=== PATIENT | female | born 1995 | race Caucasian/White ===

== ENCOUNTER 2020-04-06 10:33 | Outpatient (CLI) | payer OTHER, SELFPAY ==
--- NOTE | ~2020-04-06 | US_ITS ---
US OB <= 14 weeks fetus DATE: 04/06/2020 11:25 INDICATION: Threatened miscarriage TECHNIQUE: Real-time imaging and Doppler analysis COMPARISON: None FINDINGS: The uterus measures 9.8 cm height, 7.2 cm transverse and 4.9 cm anteroposterior dimension. An intrauterine gestational sac is identified, normally shaped, with normal surrounding hyperechogeni city consistent with decidual reaction. Yolk sac and pole are detected. There is heart mo tion. The crown-rump length is 1.71 cm is consistent with estimated gestational age of 8 weeks 1 day +/- 5 days. MARVA is 11/15/2020. There is a 16 x 3.6 x 13 mm hypoechoic subchorionic area consistent with subchorionic hemorrhage. The right ovary measures 3.7 x 1.8 x 1.8 cm. Left ovary measures 3.3 x 2 x 3.2 cm. No pelvic mass lesion or abnormal pelvic fluid collection is detected. IMPRESSION: Subchorionic hemorrhage Reviewed, dictated and finalized at [facility]. Reviewed, dictated and finalized at [facility]. IMPRESSION: Subchorionic hemorrhage
== END 2020-04-06 10:34 | disposition home or self-care (01) ==
LOC: ANHIMG 10:38
PROVIDERS: Visit Provider Obstetrics & Gynecology
DX: O20.0 Threatened abortion (principal); O43.891 Other placental disorders, first trimester; Z3A.00 Weeks of gestation of pregnancy not specified
CPT/HCPCS: 76801

== ENCOUNTER 2020-06-09 01:14 | Observation (INO) | payer OTHER, SELFPAY ==
[2020-06-09 01:19] VITALS: BP 118/90; PULSE 103; RESP 18; TEMP 36.7; O2SAT 100
--- NOTE | 2020-06-09 02:31 | ED.GENADULT ---
HPI - General Adult General Chief complaint: Unspecified Stated complaint: abd pain, yellow thick discharge Time Seen by Provider: 06/09/20 01:18 History of Present Illness HPI narrative: female currently 17 weeks with h/o previous second trimester miscarriage presents to the ED for vaginal discharge. She reports that for the past 2 days she has had a moderate amount of thick yellow discharge. This is associated with lower abdominal cramping and frequent urination. She has had some nausea with this , none currently. She is followed by Dr. Remy. No fever, flank pain, vaginal bleeding. Related Data Home Medications Medication Instructions Recorded Confirmed metoclopramide HCl 10 mg PO Q6H PRN 06/09/20 06/09/20 pyridoxine (vitamin B6) 25 mg PO QID 06/09/20 06/09/20 Allergies Allergy/AdvReac Type Severity Reaction Status Date / Time human papillomavirus Allergy Unknown Swelling Verified 06/30/19 05:44 vaccine, quadr Review of Systems Review of Systems: All systems reviewed & are unremarkable except as noted in HPI and below Constitutional: Constitutional: Denies fever(s) Cardiovascular: Cardiovascular: Denies chest pain Respiratory: Respiratory: Denies dyspnea Gastrointestinal: Gastrointestinal: Reports abdominal pain, Denies diarrhea, Denies nausea and Denies vomiting Genitourinary: Genitourinary: Denies abnormal vaginal bleeding, Denies hematuria, Denies dysuria and Reports vaginal discharge Musculoskeletal: Musculoskeletal: Denies back pain [facility] Family History Family History Other Unknown family medical history Social History Social History Smoking packs per day: 0.5 Smoking cigarettes per day: 10.0 Smoking status: Current every day smoker Tobacco type: cigarettes Additional smoking assessment comments: while preg. tries to smoke 5 cigarettes in a day. Also smokes pot Alcohol intake: never Substance use: current Substance use type: marijuana Gender identity (if verbalized by the patient): Female Spiritual care concerns: No Exam Const: General: healthy appearing, no acute distress and alert Orientation/consciousness: patient oriented x3 HENMT: Head: normal to inspection Neck: Neck: normal visual inspection and no lymphadenopathy Chest: Chest palpation & inspection: no tenderness Resp: Effort & Inspection: normal respiratory effort Auscultation: clear to auscultation bilaterally, no rales, no rhonchi and no wheezes Cardio: Jugular venous distension: no JVD Rate: regular rate Rhythm: regular rhythm Heart sounds: no murmurs GI: Inspection: non-distended GI Palp: Yes Soft to palpation and No Tenderness to palpation present (GI) : Other: immediately upon inserting the speculum into the vagina a bulging amniotic sac with parts was visible. Skin: General skin exam: normal color Neuro: General: patient oriented x3, moves all extremities and CN's II-XI intact bilaterally Speech: normal speech Extrem: General: no edema Psych: Appearance: well kempt Affect: normal affect Course Course Emergency Course: Upon performing the pelvic exam I informed the patient of what I had seen and left the room to page Dr. Remy. She then got up from the stretcher to use the telephone and she began to experience some bleeding. I discussed the case with Dr. Remy and he said that he would admit her observation. Vital Signs Vital signs: Vital Signs Temperature 36.7 C 06/09/20 01:19 Pulse Rate 103 H 06/09/20 01:19 Respiratory Rate 18 06/09/20 01:19 Blood Pressure 118/90 06/09/20 01:19 Pulse Oximetry 100 06/09/20 01:19 Temperature 36.7 C 06/09/20 09:05 Pulse Rate 70 06/09/20 09:05 Respiratory Rate 06/09/20 09:05 Blood Pressure 96/55 L 06/09/20 09:05 Pulse Oximetry 100 06/09/20 09:05 Medical Decision Ma
[2020-06-09 02:36] VITALS: BP 134/9; PULSE 79; RESP 18; O2SAT 100
[2020-06-09 02:39] LABS: Basophils Percent Auto 0.2 % (0.2-1.2); Eosinophils Absolute Auto 0.1 K/mm3 (0-0.3); Eosinophils Percent Auto 0.7 % (0-4.4); Hematocrit 33.3 % (37.0-47.0); Hemoglobin 11.6 g/dL (12.0-15.0); Immature Granulocyte Absolute 0.04 K/mm3 (0.00-0.031); Immature Granulocyte Percent A 0.3 % (0-0.5); Lymphocytes Absolute Auto 2.61 K/mm3 (0.9-3.2); Lymphocytes Percent Auto 19.4 % (18.3-44.2); Mean Corpuscular HGB Conc 34.8 g/dl (32-36); Mean Corpuscular Hemoglobin 32.4 pg (26-34); Mean Platelet Volume 10.3 fl (7.4-10.4); Monocytes Absolute Auto 0.9 K/mm3 (0.1-0.6); Neutrophils Absolute Auto 9.7 K/mm3 (1.3-6.7); Neutrophils Percent Auto 72.4 % (45.5-73.1); Platelet Count Result 200 k/mm3 (150-375); Red Blood Count 3.58 M/mm3 (4.2-5.4); Red Cell Distribution Width 13.6 % (11.5-14.5); White Blood Count 13.5 K/mm3 (4.5-10.0)
[2020-06-09 02:42] LABS: Add Urine Microscopic? YES; Appearance Urine Clear (Clear); Bacteria Urine Trace /hpf; Bilirubin Urine Negative (Negative); Blood Urine Negative (Negative); Color Urine Yellow (Yellow); Glucose Urine UA Negative (Negative); Ketones Urine Negative (Negative); Leukocyte Esterase Ur Trace LEU/UL (Negative); Mucus Urine Rare /lpf; Nitrate Urine Negative (Negative); Protein Urine Negative (Negative); RBC Urine 0-2 /hpf (0-2); Squamous Epithelial Cell Urine Few /hpf (Few); Urobilinogen Urine Negative mg/dL (<2.0); WBC Urine 0-3 /hpf
[2020-06-09 02:55] LABS: Alanine Aminotransferase 42 U/L (4-35); Albumin Level 4.4 g/dL (3.5-5.1); Alkaline Phosphatase 63 U/L (38-126); Aspartate Amino Transferase 25 U/L (14-36); Bilirubin,Total 0.3 mg/dL (0.2-1.3); Blood Urea Nitrogen 8 mg/dL (7-17); Calcium 9.5 mg/dL (8.4-10.2); Carbon Dioxide 23 mmol/L (22-30); Chloride 106 mmol/L (98-107); Estimated Glomerular Filt Rate > 60; Glucose 99 mg/dL (65-105); Potassium 3.9 mmol/L (3.4-5.0); Sodium 137 mmol/L (137-145)
--- NOTE | 2020-06-09 03:25 | PC.NURSE ---
After pelvic exam, pt walked out to phone and noticed blood dripping on the floor from her vagina. Pt walked back to room where she was given a warm towel to clean herself and some underwear and pads for any constant drainage.
[2020-06-09 03:51] VITALS: BP 139/77; PULSE 78; RESP 14; O2SAT 100
[2020-06-09] MEDS: LORazepam 1 MG TABLET PO (03:59)
--- NOTE | 2020-06-09 04:28 | ADMGEN ---
This patient, Asya Hunter, was admitted to 2 Medical Room 248-01 @0424 Patient/family oriented to hospital policies and general routines including ID bracelet, bed and alarms, visiting hours, pain management, procedures, bathroom and other care routines, personal items, smoking policy, room service/diet, and visiting hours. Valuables list has been completed. Information on how to activate the Rapid Response Team has been discussed. Patient/Family are encouraged to report perceived risks to care and to ask questions if they do not understand what they are told or what they should do.
[2020-06-09] MEDS: LACTATED RINGERS 1,000 ML 100 ML IV CONT (04:45)
[2020-06-09 06:00] VITALS: BP 126/46; PULSE 63; RESP 18; TEMP 37.2; O2SAT 99; BMI 33.6
--- NOTE | 2020-06-09 06:55 | PC.NURSE ---
Called to floor to assist with delivery. Patient having an urge to push. Sve performed Complete.
--- NOTE | 2020-06-09 06:58 | PC.NURSE ---
Sylvia Lane RN at bedside. Checking cervix and staying at pt's bedside.
--- NOTE | 2020-06-09 07:15 | PC.NURSE ---
Dr Remy here for delivery.
--- NOTE | 2020-06-09 07:23 | PC.NURSE ---
AROM, Bloody fluid noted. Dr Remy remains at bedside. Patient is complete and pushing.
[2020-06-09] MEDS: OXYTOCIN 30 UNITS/NS 500 ML 30 UNITS/500 ML BAG 999 UNITS IV CONT (07:25)
--- NOTE | 2020-06-09 07:25 | PC.NURSE ---
Delivery of a non viable male infant. Heart rate and movement noted. To mothers chest for her to hold. Discussed viability with patient and family. Explained the limits of viable age for resuscitation. Comfort care given.
[2020-06-09] MEDS: miSOPROStol 200 MCG TABLET 600 MCG VAGINAL (07:58)
--- NOTE | 2020-06-09 08:00 | PC.NURSE ---
OB nurse Sylvia in room with patient, along with Dr. Remy. Patient has delivered her baby and is holding baby. Mother at bedside for support along with physician and nurse.
--- NOTE | 2020-06-09 08:08 | PC.NURSE ---
At 0700 Dr. Bush and Sylvia RN ob nurse is at bedside.
--- NOTE | 2020-06-09 08:27 | PC.NURSE ---
AROM, bloody fluid noted. Patient complete. Dr Remy remains at beside.
--- NOTE | 2020-06-09 08:28 | PC.NURSE ---
AROM, Bloody fluid noted. Dr Remy remains at beside.
--- NOTE | 2020-06-09 08:36 | PC.NURSE ---
Delivery of Placenta per Dr Remy.
[2020-06-09] MEDS: miSOPROStol 200 MCG TABLET 400 MCG VAGINAL (08:40)
[2020-06-09 09:05] VITALS: BP 96/55; PULSE 70; RESP 19; TEMP 36.7; O2SAT 100
[2020-06-09 09:15] LABS: Basophils Percent Auto 0.2 % (0.2-1.2); Eosinophils Percent Auto 0.3 % (0-4.4); Hemoglobin 9.7 g/dL (12.0-15.0); Immature Granulocyte Absolute 0.05 K/mm3 (0.00-0.031); Immature Granulocyte Percent A 0.4 % (0-0.5); Lymphocytes Percent Auto 19.9 % (18.3-44.2); Mean Corpuscular HGB Conc 34.6 g/dl (32-36); Mean Corpuscular Hemoglobin 32.3 pg (26-34); Mean Corpuscular Volume 93.3 fl (80-100); Mean Platelet Volume 10.5 fl (7.4-10.4); Monocytes Absolute Auto 0.7 K/mm3 (0.1-0.6); Monocytes Percent Auto 5.5 % (2.6-8.5); Neutrophils Absolute Auto 9.3 K/mm3 (1.3-6.7); Neutrophils Percent Auto 73.7 % (45.5-73.1); Platelet Count Result 177 k/mm3 (150-375); Red Cell Distribution Width 13.6 % (11.5-14.5); White Blood Count 12.6 K/mm3 (4.5-10.0)
--- NOTE | 2020-06-09 09:17 | PM.IMHP ---
H&P: HPI History of Present Illness Chief complaint: Miscarriage Narrative: Asya Hunter is a 25 year old female at 17wks 2d gestation presented to the ER with complaints of vaginal discharge. Patient has been having occasional cramping in the generalized abdomen. Denied abdmonial pain or vaginal bleeding. She started to notice a change in her vaginal discharge over the last few days, becoming watery and yellow in color. Upon examination by the ER physician, she was noted to have membranes in the vagina with bulging bag of mambranes. She had a similar loss about 1 year ago, but her presentation at that time was contractions and vaginal bleeding, placenta on pathology at that time was significant for abruption. Antiphospholipid workup was negative last year. Review of Systems Constitutional: Constitutional: Reports no additional constitutional complaints Respiratory: Respiratory: Reports no additional respiratory complaints Gastrointestinal: Gastrointestinal: Reports no additional gastrointestinal complaints Genitourinary: Genitourinary: Reports no additional female genitourinary complaints Psychiatric: Psychiatric: Reports no additional psychiatric complaints [facility] Family History Family History Other Unknown family medical history Social History Social History Smoking packs per day: 0.5 Smoking cigarettes per day: 10.0 Smoking status: Current every day smoker Tobacco type: cigarettes Additional smoking assessment comments: while preg. tries to smoke 5 cigarettes in a day. Also smokes pot Alcohol intake: never Substance use: current Substance use type: marijuana Gender identity (if verbalized by the patient): Female Spiritual care concerns: No Meds Home Medications and Allergies Home Medications Medication Instructions Recorded Confirmed Type metoclopramide HCl 10 mg PO Q6H PRN 06/09/20 06/09/20 History pyridoxine (vitamin B6) 25 mg PO QID 06/09/20 06/09/20 History Allergies Allergy/AdvReac Type Severity Reaction Status Date / Time human papillomavirus Allergy Unknown Swelling Verified 06/30/19 05:44 vaccine, quadr Vital Signs Vital Signs - 24 hr 06/09/20 01:19 06/09/20 02:36 06/09/20 03:51 Temperature 36.7 C Pulse Rate 103 H 79 78 Respiratory Rate 18 18 14 Blood Pressure 118/90 134/9 L 139/77 Pulse Oximetry 100 100 100 06/09/20 06:00 06/09/20 09:05 Temperature 37.2 C 36.7 C Pulse Rate 63 70 Respiratory Rate 18 19 Blood Pressure 126/46 L 96/55 L Pulse Oximetry 99 100 Exam Const: General: comfortable and no acute distress Resp: Effort & Inspection: normal respiratory effort Cardio: Rate: regular rate GI: GI Palp: Yes Soft to palpation : Speculum Exam - Vagina: vaginal bleeding Other: cervix completely dilated, bulging membranes to level of introitus Neuro: Speech: normal speech Psych: Affect: Sad affect present H&P: Results Labs Labs: Short CBC 06/09/20 06/09/20 Range/Units 02:27 09:01 WBC 13.5 H 12.6 H (4.5-10.0) K/mm3 Hgb 11.6 L 9.7 L (12.0-15.0) g/dL Hct 33.3 L 28.0 L (37.0-47.0) % Plt Count 200 177 (150-375) k/mm3 BMP 06/09/20 02:27 Sodium 137 Potassium 3.9 Chloride 106 Carbon Dioxide 23 BUN 8 Creatinine 0.60 L Glucose 99 Calcium 9.5 Liver Function 06/09/20 Range/Units 02:27 Total Bilirubin 0.3 (0.2-1.3) mg/dL AST 25 (14-36) U/L ALT 42 H (4-35) U/L Alkaline Phosphatase 63 (38-126) U/L Albumin 4.4 (3.5-5.1) g/dL Urine 06/09/20 Range/Units 02:09 Urine Color Yellow (Yellow) Urine Appearance Clear (Clear) Urine pH 7.0 (5.0-9.0) Ur Specific [place] 1.010 (1.001-1.035) Urine Protein Negative (Negative) mg/dL Urine Glucose (UA) Negative (Negative) mg/dL Assessment and Plan Assessment and plan (1) Inevitabl
[2020-06-09 09:18] LABS: INR 1.1; Prothrombin Time 13.8 Seconds (11.1-14.7)
[2020-06-09 09:19] LABS: Partial Thromboplastin Time 27.5 SECONDS (22.3-36.8)
[2020-06-09 09:20] LABS: Fibrinogen 218 mg/dl (215-510)
[2020-06-09] MEDS: IBUPROFEN 600 MG TABLET PO (09:39)
--- NOTE | 2020-06-09 11:00 | PC.NURSE ---
Pastor Rey Mooney here in room providing emotional support to patient and her significant other. Assisting them with paperwork for home. Astrid Mooney also at bedside discussing [facility] group resources and follow up with patient.
--- NOTE | 2020-06-09 11:05 | PM.DS ---
DS: Admitting Diagnosis Admitting Diagnosis Admitting Diagnosis: Inevitable DS: Discharge Diagnosis Discharge Diagnosis (1) Spontaneous : Code(s): O03.9 - Complete or unspecified spontaneous without complication Status: Acute DS: Summary Hospital Course Reason for hospitalization: Patient presented to the ER with vaginal discharge, on exam, parts were noted in the vagina with bulging membranes. Hospital Course: Once admitted to the floor, she was noted to be completely dilated with vaginal pressure and desire to push. Discussed that survival is nil at this gestational age and no resuscitation measures could be offered. AROM was performed and fetus was delivered. Time Spent with Patient Time attestation: Total time spent providing and/or coordinating discharge services: Exam Const: General: comfortable and no acute distress Resp: Effort & Inspection: normal respiratory effort Cardio: Rate: regular rate Neuro: Speech: normal speech Psych: Affect: Sad affect present DS: Data Data Completed and Pending Labs on day of discharge: Labs from last 24 hours 06/09/20 06/09/20 06/09/20 09:01 09:01 02:27 WBC 12.6 H RBC 3.00 L Hgb 9.7 L Hct 28.0 L MCV 93.3 MCH 32.3 MCHC 34.6 RDW 13.6 Plt Count 177 MPV 10.5 H Immature Gran % (Auto) 0.4 Neut % (Auto) 73.7 H Lymph % (Auto) 19.9 [place] % (Auto) 5.5 Eos % (Auto) 0.3 Baso % (Auto) 0.2 Lymph # (Auto) 2.50 [place] # (Auto) 0.7 H Eos # (Auto) 0.0 Baso # (Auto) 0.0 Abs Immat Gran (auto) 0.05 H Absolute Neuts (auto) 9.3 H Absolute Nucleated RBC 0.0 Nucleated RBC % 0.0 PT 13.8 INR 1.1 APTT 27.5 Fibrinogen 218 Sodium 137 Potassium 3.9 Chloride 106 Carbon Dioxide 23 BUN 8 Creatinine 0.60 L Estim Creat Clear Calc Not Reportable Estimated GFR > 60 Glucose 99 Calcium 9.5 Total Bilirubin 0.3 AST 25 ALT 42 H Alkaline Phosphatase 63 Total Protein 7.0 Albumin 4.4 Urine Color Urine Appearance Urine pH Ur Specific [place] Urine Protein Urine Glucose (UA) Urine Ketones Ur Blood (Man) Urine Nitrate Urine Bilirubin Urine Urobilinogen Leukocyte Esterase Rfl Urine RBC Urine WBC Ur Squamous Epith Cells Urine Bacteria Urine Mucus 06/09/20 06/09/20 02:27 02:09 WBC 13.5 H RBC 3.58 L Hgb 11.6 L Hct 33.3 L MCV 93.0 MCH 32.4 MCHC 34.8 RDW 13.6 Plt Count 200 MPV 10.3 Immature Gran % (Auto) 0.3 Neut % (Auto) 72.4 Lymph % (Auto) 19.4 [place] % (Auto) 7.0 Eos % (Auto) 0.7 Baso % (Auto) 0.2 Lymph # (Auto) 2.61 [place] # (Auto) 0.9 H Eos # (Auto) 0.1 Baso # (Auto) 0.0 Abs Immat Gran (auto) 0.04 H Absolute Neuts (auto) 9.7 H Absolute Nucleated RBC 0.0 Nucleated RBC % 0.0 PT INR APTT Fibrinogen Sodium Potassium Chloride Carbon Dioxide BUN Creatinine Estim Creat Clear Calc Estimated GFR Glucose Calcium Total Bilirubin AST ALT Alkaline Phosphatase Total Protein Albumin Urine Color Yellow Urine Appearance Clear Urine pH 7.0 Ur Specific [place] 1.010 Urine Protein Negative Urine Glucose (UA) Negative Urine Ketones Negative Ur Blood (Man) Negative Urine Nitrate Negative Urine Bilirubin Negative Urine Urobilinogen Negative Leukocyte Esterase Rfl Trace H Urine RBC 0-2 Urine WBC 0-3 Ur Squamous Epith Cells Few Urine Bacteria Trace Urine Mucus Rare Discharge Plan Discharge Attending physician on discharge: Agatha Remy Consulting providers: Wang Baez Discharging Clinician: Agatha Remy Patient Disposition: Home, Self-Care Activity: may shower, as tolerated and pelvic rest Diet: regular Patient Instructions: How to Stop Smoking (ED), Antibiotic Form Stand Alone Forms: General
--- NOTE | 2020-06-09 11:30 | PC.NURSE ---
Bleeding controlled. Patient denies further cramping since taking Ibuprofen. Steady on feet and has been up in room and to bathroom. Patient ready for discharge. Has been given all follow up information regarding [facility] group. OB nurse Sylvia has given patient her keepsakes as well (footprint, etc).
--- NOTE | 2020-06-09 12:08 | OP_ITS ---
DATE OF PROCEDURE: 06/09/2020 PROCEDURE: Vaginal delivery of a 2nd trimester miscarriage. PRE-DELIVERY DIAGNOSES: 1. 17-week 2-day gestation . 2. Inevitable . POST-DELIVERY DIAGNOSIS: Spontaneous . ANESTHESIA: IV medication. ESTIMATED BLOOD LOSS: 800 mL. FINDINGS: Second trimester fetus delivered on June 09, 2020 at 0725. Weight 138 g. COMPLICATIONS: None apparent. BRIEF HISTORY: A 25-year-old, G2, P0, at 17 weeks and 2 days gestation, presented to the ER with complaints of vaginal discharge for the past few days. Upon examination by the ER staff, membranes were noted in the vagina with bulging membranes. The patient was admitted for inevitable . She was counseled regarding the gestational age of the fetus is inconsistent with life. No resuscitative measures could be offered. DESCRIPTION OF PROCEDURE: The patient felt the urge to push. Examination was performed. Cervix was noted to be completely dilated with bulging bag of membranes. Discussing with the patient that miscarriage was imminent and inevitable, proceeded to artificial rupture of membranes in order to facilitate delivery of the miscarriage. AROM performed, bloody fluid noted and a single male fetus was delivered in breech position at 0725 hours. The cord was clamped and cut. The fetus was noted to have heart beat and movement at the time of delivery. Again discussed with the patient and mother that at this gestational age, no resuscitative efforts could be offered. The fetus was handed off to the mother for comfort care. After the cord was clamped and cut, 600 mcg of Cytotec was inserted into the vagina to facilitate delivery of the placenta. Delivery of the placenta was eventually accomplished at 0836 hours. An additional 400 mcg of Cytotec was administered vaginally to help reduce bleeding. IV oxytocin was also administered. Total EBL for the procedure was 800 mL. At the end of the procedure, all sponge and instrument counts were correct. Bleeding had slowed down. We will continue to monitor the patient for additional few hours before discharge. The patient tolerated the procedure well. D I MT: [place]
== END 2020-06-09 12:05 | disposition home or self-care (01) ==
LOC: ANHED 03:37 → ANH3MED 03:39 → ANH2MED 04:05
PROVIDERS: Admitting Provider Obstetrics & Gynecology; Emergency Provider Emergency Medicine; Visit Provider Obstetrics & Gynecology
DX: O60.12X0 Preterm labor second trimester with preterm delivery second trimester, not applicable or unspecified; O32.1XX0 Maternal care for breech presentation, not applicable or unspecified; O41.1220 Chorioamnionitis, second trimester, not applicable or unspecified; O99.334 Smoking (tobacco) complicating childbirth; F17.210 Nicotine dependence, cigarettes, uncomplicated; Z3A.17 17 weeks gestation of pregnancy; Z37.0 Single live birth
CPT/HCPCS: 59409; 36415; 80053; 81001; 81025; 85025; 85384; 85610; 85730; 88305; 88307; 96374; 99285; A9270; G0378; G0379; J2590; J7120